=== PATIENT | male | born 1965 | race Caucasian/White ===

== ENCOUNTER 2016-08-19 09:50 | Emergency (ER) | payer BC ==
[2016-08-19 10:08] VITALS: BP 122/84
--- NOTE | 2016-08-19 10:18 | UC ---
Throat Pain/Nasal Inocencio HPI - HPI Summary HPI Summary: complaint of nasal congestion and cough that started approx 2 weeks ago cough has worsened and keeping him up at night pain in the front of his head sore throat ad ear pain for the first 4 days but resolved feels fatigued denies fever and chills, sweating more often taking cough medicine , tylenol cold and flu without relief - History of Current Complaint Chief Complaint: UCRespiratory Stated Complaint: COUGH Time Seen by Provider: 08/19/16 10:04 Hx Obtained From: Patient - Allergies/Home Medications Allergies/Adverse Reactions: Allergies Allergy/AdvReac Type Severity Reaction Status Date / Time No Known Allergies Allergy Verified 08/19/16 10:01 PMH/Surg Hx/FS Hx/Imm Hx Previously Healthy: Yes - Surgical History Surgical History: None - Family History Known Family History: Negative: Cardiac Disease, Hypertension, Diabetes - Social History Occupation: Employed Full-time Lives: With Family Alcohol Use: Occasionally Substance Use Type: None Smoking Status (MU): Current Every Day Smoker Type: Cigarettes Amount Used/How Often: 1 PPD Cessation Counseling: Patient Advised to Stop - Immunization History Most Recent Influenza Vaccination: FALL 2015 Most Recent Tetanus Shot: UTD Most Recent Pneumonia Vaccination: N/A Review of Systems Constitutional: Negative Skin: Negative Eyes: Negative ENT: Nasal Discharge Respiratory: Cough Cardiovascular: Negative Gastrointestinal: Negative Genitourinary: Negative Motor: Negative Neurovascular: Negative Musculoskeletal: Negative Neurological: Negative Psychological: Negative All Other Systems Reviewed And Are Negative: Yes Physical Exam Triage Information Reviewed: Yes Appearance: No Pain Distress, Well-Nourished Vital Signs: Initial Vital Signs Temp 98.3 F 08/19/16 10:02 Pulse 68 08/19/16 10:02 Resp 16 08/19/16 10:02 BP 122/84 08/19/16 10:02 Pulse Ox 98 08/19/16 10:02 Vital Signs Reviewed: Yes Eyes: Positive: Conjunctiva Clear ENT: Positive: Pharynx normal, Nasal congestion, Nasal drainage, TMs normal Neck: Positive: No Lymphadenopathy Respiratory: Positive: Normal breath sounds, No respiratory distress, No accessory muscle use, Rhonchi - RLL Cardiovascular: Positive: RRR, No Murmur, Pulses Normal Abdomen Description: Positive: Nontender, Soft Bowel Sounds: Positive: Present Musculoskeletal: Positive: No Edema Neurological: Positive: Alert Psychological Exam: Normal Skin Exam: Normal Throat Pain/Nasal Course/Dx - Course Course Of Treatment: exam completed. will treat with antibiotics d/t length of time, smoker - Differential Dx/Diagnosis Differential Diagnosis/HQI/PQRI: Sinusitis, Tonsillitis, URI, Other - pneumonia, Provider Diagnoses: sinusitis, bronchitis Discharge - Discharge Plan Condition: Stable Disposition: HOME Prescriptions: Albuterol HFA INHALER* [Ventolin HFA Inhaler*] 2 puff INH Q4H PRN #1 mdi PRN Reason: Wheezing Benzonatate CAP* [Tessalon 100 MG CAP*] 100 mg PO TID #30 cap Clarithromycin TAB* [Biaxin 500 MG TAB*] 500 mg PO BID #20 tab Spacer/Aerosol-Holding Chamber [Aerochamber Mv] 1 mis XX Q4HR #1 mis Patient Education Materials: Sinusitis (ED), Acute Bronchitis (ED) Referrals: [facility] [Outside] Additional Instructions: Please take antibiotic as directed Use your albuterol inhaler every 4-6 hours when needed for wheezing, shortness of breath or uncontrolled coughing. Increase fluids and rest Take acetaminophen or ibuprofen for fever or pain Please review your discharge instructions. If your symptoms do not improve please call your primary care provider or return to urgent care.
== END 2016-08-19 10:30 | disposition home or self-care (01) ==
LOC: UCCORT 09:50
DX: J32.9 Chronic sinusitis, unspecified (principal); J40 Bronchitis, not specified as acute or chronic; F17.210 Nicotine dependence, cigarettes, uncomplicated
CPT/HCPCS: 99202; G0463

== ENCOUNTER 2016-09-13 18:25 | Emergency (ER) | payer BC ==
[2016-09-13 18:47] VITALS: BP 146/89
--- NOTE | 2016-09-13 18:47 | UC ---
Truncal Trauma HPI - HPI Summary HPI Summary: 51 YEAR OLD PRESENTS WITH COMPLAINS OF LEFT SIDED RIB PAIN AFTER FALLING. - History Of Current Complaint Chief Complaint: UCGeneralIllness Stated Complaint: LEFT SIDE RIB PAIN (FALL) Time Seen by Provider: 09/13/16 18:41 - Allergies/Home Medications Allergies/Adverse Reactions: Allergies Allergy/AdvReac Type Severity Reaction Status Date / Time No Known Allergies Allergy Verified 09/13/16 18:38 PMH/Surg Hx/FS Hx/Imm Hx - Surgical History Surgical History: None - Family History Known Family History: Negative: Cardiac Disease, Hypertension, Diabetes - Social History Alcohol Use: Occasionally Substance Use Type: None Smoking Status (MU): Heavy Every Day Tobacco Smoker Type: Cigarettes Amount Used/How Often: 1 PPD - Immunization History Most Recent Influenza Vaccination: FALL 2015 Most Recent Tetanus Shot: UTD Most Recent Pneumonia Vaccination: N/A Review of Systems Constitutional: Negative Skin: Negative Eyes: Negative ENT: Negative Respiratory: Negative Cardiovascular: Negative Gastrointestinal: Negative Genitourinary: Negative Motor: Negative Neurovascular: Negative Musculoskeletal: Myalgia, Other: - LEFT RIB PAIN Neurological: Negative Psychological: Negative All Other Systems Reviewed And Are Negative: Yes Physical Exam Triage Information Reviewed: Yes Vital Signs: Initial Vital Signs Temp 37.1 C 09/13/16 18:32 Pulse 95 09/13/16 18:32 Resp 18 09/13/16 18:32 BP 146/89 09/13/16 18:32 Pulse Ox 99 09/13/16 18:32 Musculoskeletal: Positive: Other: - LEFT RIB PAIN Truncal Trauma Course/Dx - Differential Dx/Diagnosis Provider Diagnoses: LEFT SIDED RIB CONTUSION Discharge - Discharge Plan Condition: Stable Disposition: HOME Prescriptions: Methocarbamol [Robaxin-750 MG TAB] 750 mg PO Q8HR PRN #30 tab PRN Reason: Spasms Naproxen Sodium [Naproxen Sodium 500 MG TAB] 500 mg PO BID #30 tab Patient Education Materials: Rib Contusion (ED) Forms: *Work Release Referrals: Jeovany Avery MD [Primary Care Provider] -
--- NOTE | 2016-09-13 19:09 | RAD ---
Indication: Left-sided rib pain 3 views of left ribs as well as a PA dual energy view of the chest demonstrate no mediastinal shift. Heart is of normal size and configuration. No pneumothorax is noted. No definite rib fracture is identified. IMPRESSION: No definite rib fracture is noted. No pneumothorax is noted.
== END 2016-09-13 19:35 | disposition home or self-care (01) ==
LOC: UCCORT 18:25
DX: S20.212A Contusion of left front wall of thorax, initial encounter (principal); W19.XXXA Unspecified fall, initial encounter; Y92.9 Unspecified place or not applicable; F17.210 Nicotine dependence, cigarettes, uncomplicated
CPT/HCPCS: 99212; G0463